=== PATIENT | female | born 2000 ===

== ENCOUNTER 2024-06-24 07:27 | Outpatient (CLI) ==
[~2024-06-24] VITALS: Ht 162.6 cm; Wt 79.0 kg
[2024-06-24] MEDS ORDERED: PRENTAB9 PO (07:39)
[2024-06-24 07:46] VITALS: BP 132/71; O2SAT 100
[2024-06-24] MEDS ORDERED: HOME MED LIST COMPLETE! XX SCH (07:50)
[2024-06-24 09:19] VITALS: BP 118/68
== END 2024-06-24 09:34 | disposition home or self-care (01) ==
LOC: M LDO 07:27
PROVIDERS: ATTEND Advanced Practice Midwife
DX: O26.892 Other specified pregnancy related conditions, second trimester (principal); R10.2 Pelvic and perineal pain; R10.31 Right lower quadrant pain; Z3A.24 24 weeks gestation of pregnancy
CPT/HCPCS: 59025; G0463

== ENCOUNTER 2024-08-10 22:13 | Outpatient (CLI) | payer BC ==
[~2024-08-10] VITALS: Ht 162.6 cm; Wt 79.3 kg
[~2024-08-10 22:13] MED LIST: PRENTAB9 PO
[2024-08-10 22:28] VITALS: BP 122/77
[2024-08-10 22:55] LABS: APPEARANCE, URINE CLOUDY (CLEAR); BACTERIA, URINE AUTO 3+ (NEGATIVE); BILIRUBIN, URINE AUTO NEGATIVE (NEGATIVE); BLOOD, URINE BLOOD NEGATIVE (NEGATIVE); COLOR, URINE YELLOW (YELLOW); GLUCOSE, URINE (UA) AUTO NEGATIVE (NEGATIVE); KETONE, URINE AUTO NEGATIVE (NEGATIVE); LEUKOCYTE ESTERASE, URINE AUTO 2+ (NEGATIVE); MUCUS, URINE SMALL (NEGATIVE); NITRITE, URINE AUTO NEGATIVE (NEGATIVE); PROTEIN, URINE AUTO NEGATIVE (NEGATIVE); RBC, URINE AUTO 0 /HPF (0-3); SPECIFIC GRAVITY URINE AUTO 1.009 (1.002-1.035); SQUAMOUS EPITHELIAL CELL UR AU 6 /HPF (0-6); UROBILINOGEN, URINE AUTO 0.2 mg/dL (0.0-2.0); WBC, URINE AUTO 18 /HPF (0-3)
== END 2024-08-11 01:35 | disposition home or self-care (01) ==
LOC: M LDO 22:13
PROVIDERS: ATTEND Advanced Practice Midwife
DX: O47.03 False labor before 37 completed weeks of gestation, third trimester (principal); O26.893 Other specified pregnancy related conditions, third trimester; R42 Dizziness and giddiness; R25.2 Cramp and spasm; Z3A.31 31 weeks gestation of pregnancy
CPT/HCPCS: 59025; 76815; 76817; 76820; 81001; G0463